=== PATIENT | female | born 1965 | race Caucasian/White ===

== ENCOUNTER 2016-09-15 09:16 | Emergency (ER) | payer OTHER, MEDICARE ==
--- NOTE | ~2016-09-15 | US85 ---
[facility] A Service of [facility] RADIOLOGY TEXT RESULTS PATIENT: CAROLE ALCANTARA LOCATION: [place] : 67 UNIT #: [id number] AGE: [address]: Diann Germain APRN SEX: F ORDER DR: [id number] [facility] [address] [place], [place] [address] [id number] E MR#: [id number] Acc #: [id number] NAME: CAROLE ALCANTARA : 1965 SEX: F STUDY DATE/TIME: 09/15/2016 9:33 UNIT: [facility] ROOM: STUDY DESCRIPTION: LE Veins Unilat or Ltd Stdy Attending Physician: Diann Germain A.P.R.N. Ordering Physician: Ed Doctor [id number] [facility] Primary Care Physician: Primary Care Physician No MEDICAL IMAGING REPORT This report is preliminary unless electronic signature is present EXAM Left lower extreme venous Doppler HISTORY 51-year-old female with left leg pain for several hours. TECHNIQUE Venous ultrasound examination of the left lower extremity was performed using grayscale, spectral Doppler and color flow Doppler imaging. FINDINGS The examination is negative. There is no evidence of left lower extremity deep venous thrombus from the groin to the lower calf. Visualized greater saphenous vein is also patent. IMPRESSION Negative examination. No evidence of left lower extremity deep venous thrombosis. Dictated by... Jami Alex M.D. THIS IS AN ELECTRONICALLY VERIFIED REPORT Jami Alex M.D. at 09/15/2016 5:23 PM CARL/tiara TD: 09/15/2016 12:55 JOB #: [id number] MEDICAL IMAGING REPORT Page 1 of 1 COPY
[2016-09-15 09:33] LABS: BASOPHIL# 0.1 X10e3 (0-0.3); BASOPHIL% 0.5 % (0-2.5); DIFF IND NO; EOSINOPHIL% 0.2 % (0.0-7.0); HEMATOCRIT 43.5 % (35.0-45.0); HEMOGLOBIN 14.6 gm/dL (12.0-16.0); LYMPHOCYTE# 0.8 X10e3 (1.0-3.5); LYMPHOCYTE% 5.1 % (17.0-45.0); MEAN CELL VOLUME 93.1 FL (83-96); MEAN CORPUSCULAR HEMOGLOBIN 31.3 PG (28-34); MEAN CORPUSCULAR HGB CONC 33.7 g/dL (30-36); MEAN PLATELET VOLUME 7.8 FL (6.5-11.5); MONOCYTE# 0.7 X10e3 (0-1.0); MONOCYTE% 4.5 % (3.0-12.0); NEUTROPHIL# 13.3 X10e3 (1.5-7.1); NEUTROPHIL% 89.7 % (40-75); PLATELET COUNT 178 X10e3 (140-420); RED BLOOD COUNT 4.67 X10e (3.90-5.30); RED CELL DISTRIBUTION WIDTH 13.6 % (11.0-15.5); WHITE BLOOD COUNT 14.9 X10e3 (4.0-10.5)
[2016-09-15 09:58] LABS: BUN/CREATININE RATIO 15.71; CALCIUM SERUM 9.6 mg/dL (8.4-10.2); CREATININE SERUM 1.4 mg/dL (0.6-1.4); GLOM FILT RATE Estimated 43.7 mL/min (>60); POTASSIUM 3.7 mmol/L (3.5-5.1)
== END 2016-09-15 11:59 | disposition home or self-care (01) ==
LOC: CED 09:16
PROVIDERS: Nurse Practitioner
DX: L03.116 Cellulitis of left lower limb (principal); I10 Essential (primary) hypertension; F17.210 Nicotine dependence, cigarettes, uncomplicated; Z88.0 Allergy status to penicillin; Z88.2 Allergy status to sulfonamides; Z88.1 Allergy status to other antibiotic agents
CPT/HCPCS: 36415; 80048; 85025; 93971; 96365; 96375; 99284; J0690; J0696